=== PATIENT | male | born 1945 | race Caucasian/White ===

== ENCOUNTER 2021-04-22 23:51 | Emergency (ER) | payer BC ==
[~2021-04-22] VITALS: Ht 175.3 cm; Wt 82.1 kg
[2021-04-23 00:04] VITALS: BP_SYST 149
--- NOTE | 2021-04-23 00:10 | NUR ---
Patient triaged and placed in waiting room. VSS and patient appears in no acute distress at this time. Accompanied by self, awaiting available bed, and MD notified of need for MSE.
--- NOTE | 2021-04-23 02:02 | NUR ---
Per rental clerk, pt LWBS.
== END 2021-04-23 02:00 | disposition left against medical advice (07) ==
LOC: SED 23:51
DX: F41.9 Anxiety disorder, unspecified (principal); Z53.21 Procedure and treatment not carried out due to patient leaving prior to being seen by health care provider

== ENCOUNTER 2023-10-04 08:40 | Day surgery (SDC) | payer BC ==
[~2023-10-04] VITALS: Ht 175.3 cm; Wt 83.0 kg
[~2023-10-04 08:40] MED LIST: ACETAMINOPHEN 500 MG TABLET PO ONE; CELECOXIB 200 MG CAPSULE PO ONE; GABAPENTIN 400 MG CAPSULE PO ONE; ONDANSETRON 4 MG ODT TAB PO ONE; SCOPOLAMINE HYDROBROMIDE 1 MG PATCH .72 H (TRANSDERM-SCOP) TD ONE; VANCOMYCIN HCL 1,250 MG in NS 250 ML IV ONE; ceFAZolin SODIUM 2 GM in D5W 100 ML IV ONE; oxyCODONE HCL 10 MG TAB.ER.12H PO ONE
[2023-10-04] MEDS ORDERED: ACETAMINOPHEN 500 MG TABLET ONE (08:53)
[2023-10-04] MEDS ORDERED: SCOPOLAMINE HYDROBROMIDE 1 MG PATCH .72 H (TRANSDERM-SCOP) TD ONE (08:53)
[2023-10-04] MEDS ORDERED: oxyCODONE HCL 10 MG TAB.ER.12H PO ONE (08:53)
[2023-10-04] MEDS ORDERED: CELECOXIB 200 MG CAPSULE ONE (08:58)
[2023-10-04 12:59] VITALS: BP_SYST 130; PULSE 72; RESP 16; TEMP 97.6; O2SAT 95
== END 2023-10-04 10:25 | disposition home or self-care (01) ==
LOC: SDS 08:40 → SMU 08:43 → SDS 10:25 → EDSTATUS 12:00
PROVIDERS: ATTEND Orthopaedic Surgery
DX: M17.12 Unilateral primary osteoarthritis, left knee (principal); F41.9 Anxiety disorder, unspecified; I10 Essential (primary) hypertension; E78.5 Hyperlipidemia, unspecified; F33.42 Major depressive disorder, recurrent, in full remission; E11.9 Type 2 diabetes mellitus without complications; Z53.8 Procedure and treatment not carried out for other reasons
CPT/HCPCS: 86886; 82962; 86900; 86901; 36415; Q0162; J3370; J7060; J7050

== ENCOUNTER 2023-10-11 09:37 | Day surgery (SDC) | payer BC ==
[~2023-10-11] VITALS: Ht 175.3 cm; Wt 80.9 kg
[~2023-10-11 09:37] MED LIST changes: +CEFAZOLIN SOD 2 GM in D5W 50 ML IV ONE; -ceFAZolin SODIUM 2 GM in D5W 100 ML IV ONE
[2023-10-11] MEDS ORDERED: ACETAMINOPHEN 500 MG TABLET ONE (10:14)
[2023-10-11] MEDS ORDERED: oxyCODONE HCL 10 MG TAB.ER.12H PO ONE (10:14)
[2023-10-11] MEDS ORDERED: SCOPOLAMINE HYDROBROMIDE 1 MG PATCH .72 H (TRANSDERM-SCOP) TD ONE (10:14)
[2023-10-11] MEDS ORDERED: CELECOXIB 200 MG CAPSULE ONE (10:19)
[2023-10-11] MEDS ORDERED: VANCOMYCIN HCL 1000 MG/VIAL IV ONE (12:54)
[2023-10-11] MEDS ORDERED: NS IRRIG SOLN 5000 ML IR ONE (12:54)
[2023-10-11] MEDS ORDERED: SEVOFLURANE 15 MIN GAS INH ONE (12:54)
[2023-10-11] MEDS ORDERED: KETOROLAC TROMETHAMINE 30 MG VIAL ONE (12:54)
[2023-10-11] MEDS ORDERED: POLYMYXIN B SULFATE 500,000 UNITS VIAL ONE (12:54)
[2023-10-11] MEDS ORDERED: WATER FOR IRRIGATION,STERILE 1,000 ML IRRIG.SOLN IR ONE (12:54)
[2023-10-11] MEDS ORDERED: NS IRRIG SOLN 1000 ML IR ONE (12:54)
[2023-10-11] MEDS ORDERED: TRANEXAMIC ACID 1,000 MG/10 ML VIAL ONE (12:54)
[2023-10-11] MEDS ORDERED: LR 1,000 ML IV.SOLN IV ONE (12:54)
[2023-10-11] MEDS ORDERED: BUPIVACAINE /DEX PF 0.75% SPINAL 2 ML AMP INJ ONE (12:54)
[2023-10-11] MEDS ORDERED: ROPIVACAINE HCL/PF 5 MG/ML 0.5% 30 ML VIAL ONE (12:54)
[2023-10-11] MEDS ORDERED: PROPOFOL 200MG/ 20ML VIAL (DIPRIVAN) IV ONE (12:54)
[2023-10-11] MEDS ORDERED: ATROPINE SULFATE 0.4 MG/ML VIAL ONE (12:54)
[2023-10-11] MEDS ORDERED: ONDANSETRON HCL 4 MG/2 ML VIAL ONE (12:54)
[2023-10-11] MEDS ORDERED: CLOP75TA32 PO (14:09)
[2023-10-11] MEDS ORDERED: CARV12.548 PO (14:09)
[2023-10-11] MEDS ORDERED: METF-518 PO (14:09)
[2023-10-11] MEDS ORDERED: HYDR-4038 PO (14:09)
[2023-10-11] MEDS ORDERED: ESCI10TA PO (14:09)
[2023-10-11] MEDS ORDERED: HYG25 PO (14:09)
[2023-10-11] MEDS ORDERED: RAMI10CA32 PO (14:09)
[2023-10-11] MEDS ORDERED: MIRT-115 PO (14:09)
[2023-10-11] MEDS ORDERED: LIP40 PO (14:09)
[2023-10-11] MEDS ORDERED: ACETAMINOPHEN I.V. 1000 MG 100 ML IV ONE ×2 (15:13→15:45)
[2023-10-11] MEDS ORDERED: SENNOSIDES 8.6 MG TABLET PO PRN (15:45)
[2023-10-11] MEDS ORDERED: ONDANSETRON HCL 4 MG/2 ML VIAL IVP PRN ×2 (15:45)
[2023-10-11] MEDS ORDERED: HYDROmorphone 1 MG/ML INJ. CARTRIDGE IVP PRN (15:45)
[2023-10-11] MEDS ORDERED: KETOROLAC TROMETHAMINE 30 MG VIAL IVP PRN (15:45)
[2023-10-11] MEDS ORDERED: HYDROcodone/ACETAMIN 5-325 MG TAB (NORCO/ VICODIN) PO PRN (15:45)
[2023-10-11 18:11] VITALS: BP_SYST 128; PULSE 58; RESP 16; TEMP 96.8; O2SAT 96
[2023-10-11 20:00] VITALS: BP_SYST 134; PULSE 52; RESP 18; TEMP 97.8; O2SAT 97
[2023-10-11] MEDS: CEFAZOLIN 1 GM IVPB PREMIX 50 ML IV SCH (20:00)
[2023-10-11 20:30] VITALS: O2SAT 97
[2023-10-12 00:09] VITALS: BP_SYST 123; PULSE 54; RESP 17; TEMP 97.1; O2SAT 95
[2023-10-12] MEDS: CEFAZOLIN 1 GM IVPB PREMIX 50 ML IV SCH (04:29)
[2023-10-12] MEDS: HYDROcodone/ACETAMIN 7.5-325 MG TAB PO PRN ×3 (04:35→13:41)
[2023-10-12 06:10] LABS: BASOPHILS % (AUTO) 0.4 % (0.0-2.0); EOSINOPHILS # (AUTO) 0.3 K/uL (0.0-0.4); EOSINOPHILS % (AUTO) 3.1 % (0.0-4.0); HEMATOCRIT 36.7 % (36-54); HEMOGLOBIN 12.3 g/dL (14.0-18.0); LYMPHOCYTES # (AUTO) 1.5 K/uL (1.0-5.5); LYMPHOCYTES % (AUTO) 17.8 % (20.5-51.5); MEAN CORPUSCULAR HEMOGLOBIN 28 pg (27-31); MEAN CORPUSCULAR HGB CONC 33 % (32-36); MEAN CORPUSCULAR VOLUME 85 fL (79.0-98.0); MONOCYTES # (AUTO) 0.6 K/uL (0.0-1.0); MONOCYTES % (AUTO) 7.5 % (1.7-9.3); NEUTROPHILS # (AUTO) 5.9 K/uL (1.8-7.7); NEUTROPHILS % (AUTO) 71.2 % (40.0-70.0); PLATELET COUNT (AUTO) 136 K/uL (130-430); RED BLOOD CELL COUNT(AUTO) 4.34 MIL/uL (4.2-6.2); RED CELL DISTRIBUTION WIDTH 14.1 % (9.0-15.0); WHITE BLOOD COUNT (AUTO) 8.3 K/uL (4.8-10.8)
[2023-10-12 06:35] LABS: ANION GAP 8 (5-15); CALCIUM 8.9 mg/dL (8.4-11.0); CARBON DIOXIDE 31 mmol/L (23-29); CHLORIDE 102 mmol/L (98-107); CREATININE 1.18 mg/dL (0.55-1.30); GLUCOSE 111 mg/dL (74-106); POTASSIUM 4.1 mmol/L (3.5-5.1); SODIUM SERUM 141 mmol/L (136-145); UREA NITROGEN, BLOOD 16 mg/dL (8-21)
[2023-10-12 07:50] VITALS: BP_SYST 122; PULSE 57; RESP 16; TEMP 97.4; O2SAT 97
[2023-10-12 08:00] VITALS: O2SAT 96
[2023-10-12 12:41] VITALS: BP_SYST 125; PULSE 69; RESP 16; TEMP 98; O2SAT 96
== END 2023-10-12 23:59 | disposition home or self-care (01) ==
LOC: SMU 09:37 → SDS 09:37 → STU 17:49 → SDS 10-12 23:59
PROVIDERS: ATTEND Orthopaedic Surgery
DX: M17.12 Unilateral primary osteoarthritis, left knee (principal); D46.4 Refractory anemia, unspecified; I10 Essential (primary) hypertension; E11.9 Type 2 diabetes mellitus without complications; I25.10 Atherosclerotic heart disease of native coronary artery without angina pectoris; E78.2 Mixed hyperlipidemia; I25.2 Old myocardial infarction; Z98.61 Coronary angioplasty status; Z85.828 Personal history of other malignant neoplasm of skin; Z79.01 Long term (current) use of anticoagulants; Z79.899 Other long term (current) drug therapy
CPT/HCPCS: 27447; 64447; 80048; 82962; 85025; 86886; 86900; 86901; 87081; 36415; 73560; 88305; 88311; 97162; 97110; Q0162; J0461; J3490 ×2; J0690 ×2; J1885; J2405; J2704; J3370; J7060; J7120; J7050; C1713 ×2; C1776; J0131